=== PATIENT | male | born 1975 | race Caucasian/White ===

== ENCOUNTER 2017-10-29 17:13 | Emergency (ER) | payer OTHER ==
[2017-10-29] MEDS ORDERED: FENTANYL CITR 100 MCG/2 ML ONE (17:48)
[2017-10-29] MEDS ORDERED: DIAZEPAM 5 MG TABLET ONE (17:48)
--- NOTE | 2017-10-29 17:53 | EDPHYS ---
Physician Documentation [facility] Name: Bashir Montana Age: 42 yrs Sex: Male : 1975 Arrival Date: 10/29/2017 Time: 17:17 Bed 13 Private MD: ED Physician Matt Pina HPI: 10/29 18:14 This 42 yrs old Male presents to ER via Ambulatory with complaints of BONE snw SPURS. 18:14 The patient presents with pain, numbness. The complaints affect the lateral aspect of snw left calf, left hamstring, posterior aspect of left knee and left calf. Context: resulted from known bones spurs to lower back, the patient can fully bear weight, the patient is able to ambulate. Onset: The symptoms/episode began/occurred and became worse and became persistent. Associated signs and symptoms: Pertinent positives: calf tenderness, tingling, warmth, of the left leg. Severity of symptoms: At their worst the symptoms were moderate. The patient has experienced similar episodes in the past. The patient has been recently seen by a physician: the patient's primary care provider, Dr. Rodríguez. MRI scheduled for Monday. . Historical: - Allergies: 17:24 PENICILLINS; la1 - PMHx: 17:24 None; la1 - Immunization history:: Adult Immunizations up to date. - Social history:: Smoking status: Patient/guardian denies using tobacco. ROS: 18:12 Constitutional: Negative for fever, chills, and weight loss, Eyes: Negative for injury, snw pain, redness, and discharge, ENT: Negative for injury, pain, and discharge, Neck: Negative for injury, pain, and swelling, Cardiovascular: Negative for chest pain, palpitations, and edema, Respiratory: Negative for shortness of breath, cough, wheezing, and pleuritic chest pain, Abdomen/GI: Negative for abdominal pain, nausea, vomiting, diarrhea, and constipation, Back: Negative for injury and pain, : Negative for injury, bleeding, discharge, and swelling, MS/Extremity: Negative for injury and deformity, + pain and numbness to left posterior and lateral lower extremity Skin: Negative for injury, rash, and discoloration, Neuro: Negative for headache, weakness, numbness, tingling, and seizure. Exam: 18:12 Constitutional: This is a well developed, well nourished patient who is awake, alert, snw and in no acute distress. Head/Face: Normocephalic, atraumatic. Eyes: Pupils equal round and reactive to light, extra-ocular motions intact. Lids and lashes normal. Conjunctiva and sclera are non-icteric and not injected. Cornea within normal limits. Periorbital areas with no swelling, redness, or edema. ENT: Nares patent. No nasal discharge, no septal abnormalities noted. Tympanic membranes are normal and external auditory canals are clear. Oropharynx with no redness, swelling, or masses, exudates, or evidence of obstruction, uvula midline. Mucous membranes moist. Neck: Trachea midline, no thyromegaly or masses palpated, and no cervical lymphadenopathy. Supple, full range of motion without nuchal rigidity, or vertebral point tenderness. No Meningismus. Chest/axilla: Normal chest wall appearance and motion. Nontender with no deformity. No lesions are appreciated. Cardiovascular: Regular rate and rhythm with a normal S1 and S2. No gallops, murmurs, or rubs. Normal PMI, no JVD. No pulse deficits. Respiratory: Lungs have equal breath sounds bilaterally, clear to auscultation and percussion. No rales, rhonchi or wheezes noted. No increased work of breathing, no retractions or nasal flaring. Abdomen/GI: Soft, non-tender, with normal bowel sounds. No distension or tympany. No guarding or rebound. No evidence of tenderness throughout. Back: No spinal tenderness. No costovertebral tenderness. Full range of motion. Skin: Warm, dry with normal turgor. Normal color with no rashes, no lesions, and no evidence of cellulitis. Neuro: Awake and alert, GCS 15, oriented to person, place, time, and situation. Cranial nerves II-XII grossly intact. Motor strength 5/5 in all extremities. Sensory grossly intact. Cerebellar exam normal. Normal gait. Psych: Awake, alert, with orientation to person, place and time. Behavior, mood, and affect are within normal limits. 18:12 Musculoskeletal/extremity: Extremities: grossly normal except: ROM: no acute changes, Circulation is intact in all extremities. the lateral aspect of left calf numbness. Vital Signs: 17:24 BP 155 / 102; Pulse 106; Resp 19; Temp 97.1; Pulse Ox 100% on R/A; Weight 137.44 kg; la1 Height 6 ft. 2 in. (187.96 cm) (R); 18:00 BP 118 / 79; Pulse 81; Resp 18; Pulse Ox 97% on R/A; Pain 8/10; em 17:24 Body Mass Index 38.90 (137.44 kg, 187.96 cm) la1 MDM: 17:28 Patient medically screened. snw 18:13 Data reviewed: vital signs, nurses notes. Data interpreted: Pulse oximetry: on room air snw is 97 %. Interpretation: normal. Counseling: I had a detailed discussion with the patient and/or guardian regarding: the historical points, exam findings, and any diagnostic results supporting the discharge/admit diagnosis, the presence of at least one elevated blood pressure reading (>120/80) during this emergency department visit, the need for outpatient follow up, to return to the emergency department if symptoms worsen or persist or if there are any questions or concerns that arise at home. Special discussion: Based on the history and exam findings, there is no indication for further emergent testing or inpatient evaluation. I discussed with the patient/guardian the need to see the back specialist for further evaluation of the symptoms. I discussed with the patient/guardian the need to see the primary care provider for further evaluation of the symptoms. Administered Medications: 17:45 Not Given (Physician Discretion): Valium 2 mg PO once em 17:50 Drug: fentaNYL (PF) 50 mcg Route: IM; Site: right deltoid; em 18:10 Follow up: Response: No adverse reaction em 17:50 Drug: Valium 2.5 mg Route: PO; em 18:10 Follow up: Response: No adverse reaction em Disposition: 10/29/17 17:52 Discharged to Home. Impression: Radiculopathy, lumbosacral region. - Condition is Stable. - Discharge Instructions: Back Pain, Adult, Hypertension, Lumbosacral Radiculopathy, Back Exercises, Mgxp-on-Qqog. - Prescriptions for Tylenol- Codeine #3 300-30 mg Oral Tablet - take 1 tablet by ORAL route every 6 hours As needed; 6 tablet. - Medication Reconciliation Form, Thank You Letter, Antibiotic Education, Prescription Opioid Use form. - Follow up: Emergency Department; When: As needed; Reason: Worsening of condition. Follow up: Private Physician; When: Tomorrow; Reason: Recheck today's complaints, Continuance of care, Re-evaluation by your physician. Addendum: 11/07/2017 05:55 Co-signature as Attending Physician, Matt Pina MD I agree with the assessment and w a plan of care. Signatures: Sweetie Springer, STATION JAILER-C STATION JAILER-Csnw Jose R Sumner, AUTOMATION CONTROLS SPECIALIST AUTOMATION CONTROLS SPECIALIST em Warren Rolle RN RN la1 Matt Pina MD MD ny Corrections: (The following items were deleted from the chart) 10/29 18:14 17:52 10/29/2017 17:52 Discharged to Home. Impression: Radiculopathy, lumbosacral em region. Condition is Stable. Forms are Medication Reconciliation Form, Thank You Letter, Antibiotic Education, Prescription Opioid Use. Follow up: Emergency Department; When: As needed; Reason: Worsening of condition. Follow up: Private Physician; When: Tomorrow; Reason: Recheck today's complaints, Continuance of care, Re-evaluation by your physician. snw
--- NOTE | 2017-10-29 17:53 | ER ---
Nurse's Notes [facility] Name: Bashir Montana Age: 42 yrs Sex: Male : 1975 Arrival Date: 10/29/2017 Time: 17:17 Bed 13 Private MD: Diagnosis: Radiculopathy, lumbosacral region Presentation: 10/29 17:23 Presenting complaint: Patient states: I have chronic back pain and problems and they la1 are getting worse. Transition of care: patient was not received from another setting of care. Onset of symptoms was October 29, 2017. Initial Sepsis Screen: Does the patient meet any 2 criteria? No. Patient's initial sepsis screen is negative. Does the patient have a suspected source of infection? No. Patient's initial sepsis screen is negative. Care prior to arrival: None. 17:23 Method Of Arrival: Ambulatory la1 17:23 Acuity: SABA 3 la1 Historical: - Allergies: 17:24 PENICILLINS; la1 - PMHx: 17:24 None; la1 - Immunization history:: Adult Immunizations up to date. - Social history:: Smoking status: Patient/guardian denies using tobacco. Screenin:01 Abuse screen: Denies threats or abuse. Nutritional screening: No deficits noted. em Tuberculosis screening: No symptoms or risk factors identified. Fall Risk None identified. Assessment: 18:02 General: Appears in no apparent distress. uncomfortable, Behavior is calm, cooperative. em Pain: Complains of pain in left low back Pain currently is 8 out of 10 on a pain scale. Neuro: Level of Consciousness is awake, alert, obeys commands, Oriented to person, place, time, situation, Reports paresthesias in left leg. Cardiovascular: Capillary refill < 3 seconds Patient's skin is warm and dry. Respiratory: Airway is patent Respiratory effort is even, unlabored, Respiratory pattern is regular, symmetrical. GI: Abdomen is round. : No deficits noted. Derm: Skin is intact, Skin is pink, warm \T\ dry. Musculoskeletal: Range of motion: intact in all extremities. 18:20 Reassessment: Patient appears in no apparent distress at this time. I agree with the iw above assessment by Jose R Sumner LVN. Vital Signs: 17:24 BP 155 / 102; Pulse 106; Resp 19; Temp 97.1; Pulse Ox 100% on R/A; Weight 137.44 kg; la1 Height 6 ft. 2 in. (187.96 cm) (R); 18:00 BP 118 / 79; Pulse 81; Resp 18; Pulse Ox 97% on R/A; Pain 8/10; em 17:24 Body Mass Index 38.90 (137.44 kg, 187.96 cm) la1 ED Course: 17:17 Patient arrived in ED. sb2 17:24 Triage completed. la1 17:25 Arm band placed on left wrist. la1 17:27 Sweetie Springer FNP-C is [facility]. snw 17:27 Matt Pina MD is Attending Physician. snw 17:36 Jose R Sumner LVN is Primary Nurse. em 18:01 Patient has correct armband on for positive identification. Bed in low position. Call em light in reach. Adult w/ patient. 18:01 No provider procedures requiring assistance completed. Patient did not have IV access em during this emergency room visit. Administered Medications: 17:45 Not Given (Physician Discretion): Valium 2 mg PO once em 17:50 Drug: fentaNYL (PF) 50 mcg Route: IM; Site: right deltoid; em 18:10 Follow up: Response: No adverse reaction em 17:50 Drug: Valium 2.5 mg Route: PO; em 18:10 Follow up: Response: No adverse reaction em Outcome: 17:52 Discharge ordered by . snw 18:13 Discharged to home ambulatory. em 18:13 Condition: good 18:13 Discharge instructions given to patient, Instructed on discharge instructions, follow up and referral plans. medication usage, Demonstrated understanding of instructions, follow-up care, medications, Prescriptions given X 1. 18:14 Patient left the ED. em Signatures: Sweetie Springer FNP-C EXHIBIT DISPLAY REPRESENTATIVE-Csnw Jose R Sumner LVN [employer] SE[employer]ATION PLANT ENGINEER em Jackie Fish RN LANE iw Warren Rolle RN RN la1 Maia Cortes sb2
== END 2017-10-29 18:14 | disposition home or self-care (01) ==
LOC: ER 17:13
DX: M54.17 Radiculopathy, lumbosacral region (principal); Z88.0 Allergy status to penicillin
CPT/HCPCS: 96372; 99283; J3010

== ENCOUNTER → 2017-11-14 | Day surgery (SDC) | payer OTHER ==
--- NOTE | 2017-11-14 11:07 | RAD REPORT ---
EXAM DESCRIPTION: US - Guided FNA Non Breast - 11/14/2017 10:16 am CLINICAL HISTORY: Left thyroid nodule for fine needle aspiration COMPARISON: Ultrasound study September 2017 FINDINGS: Patient presents for ultrasound-guided fine-needle aspiration of a dominant 3.7 centimeter mixed solid and cystic nodule filling most of the left thyroid lobe. The ultrasound-guided fine-needle aspiration procedure, risks and alternatives were discussed with th e patient in detail. After answering all questions, both oral and written consent were obtained. Zakia ent had no contraindicated allergy or medication history. Time out procedure was performed. Preliminary imaging again identified a large mixed solid and cystic nodule. Anterior left neck was pr epped and draped in the usual sterile fashion. Skin and deeper tissues were anesthetized with 1% lido meghna. Under direct sonographic visualization a 25 gauge needle was advanced into the nodule. Needle was directed into the solid-appearing components of this nodule. Multiple to and fro excursions were made. Aspiration procedure was repeated with 3 additional 25 gauge needles chronic each directed to t he solid components of the nodule. The fifth aspiration was performed. A 25 gauge needle was used to access the cystic portions of the nodule with approximately 2 mL of fluid aspirated for cytology. Patient tolerated the procedure well without complications. There was no evidence of hemorrhage withi n the nodule or in the adjacent soft tissues. Postprocedure care and precaution instructions were giv en to the patient. IMPRESSION: Ultrasound-guided fine-needle aspiration was performed as detailed. All obtained materia l was given to cytology for assessment.
== END ==
LOC: FNA 09:25
PROVIDERS: ATTEND Otolaryngology
PROC: 0GJK3ZZ Inspection of Thyroid Gland, Percutaneous Approach (ICD-10-PCS; principal; 2017-11-14)
PROC: BG44ZZZ Ultrasonography of Thyroid Gland (ICD-10-PCS; 2017-11-14)
DX: E04.2 Nontoxic multinodular goiter (principal)
CPT/HCPCS: 76942; 88108; 88162; 88305

== ENCOUNTER 2024-10-17 11:32 | Emergency (ER) | payer OTHER ==
--- OUTSIDE RECORDS SUMMARY | 2024-10-17 11:39 | XMS REPORT | Continuity of Care Document ---
Author Name Unknown Address [address] [place] [address] [facility] Address [address] [place] [address] Care Team Providers Care Furnace Attendant Name Role Phone Buddy Middleton MD Primary Care Physician LESLIE ALVAREZ Attending Clinician LESLIE Uribe Attending Clinician Stefania edge , [facility] Bed Attending Clinician Leslie Fitch MD Attending Clinician [phone] Doctor Unassigned, [place] Attending Clinician [facility] Attending Clinician Stefania edge Payers Payer Name Policy Type Policy Number Effective Date Expirati on Date Source COMMERCIAL NON-CONTRACT GENERIC [id number] 2021 00:00:00 Allergies, Adverse Reactions, Alerts Allergy Name Allergy Type Status Severity Reaction(s) Onset Date Inactive Date Treating Clinician Comments Source NO KNOWN ALLERGIE S Drug Class Active [facility] Social History Social Habit Start Date Stop Date Quantity Comments Source Sex Assigned At 1975 00:00:00 1975 00:00:00 [facility] Smoking Status Start Date Stop Date Source Tobacco smoking consumption unknown [facility] Procedures Procedure Date / Time Performed Performing Clinicia n Source SLEEP STUDY DATA REPORT 2022-04-21 05:01:00 Doctor Unassigned, [place] [facility] CONSENT/REFUSAL FOR DIAGNOSIS AND TREATMENT 2022-03-24 15:13:30 Doctor Unassigned, [place] [facility] Encounters Start Date/Time End Date/Time Encounter Type Admission Type Attending [facility] Facility Care Department Encounter ID Source 2022-07-16 20:00:00 2022-07-16 20:00:00 Outpatient R ATANASOSMAN, STRAHIL ATANASOV, STRAHIL [facility] [id number] [facility] 2022-04-21 20:00:00 2022-04-21 22:30:00 Lead Front Desk Agent Visit 1, [facility] Lab Bed J Luis Strahil T [facility] [id number] [facility] 2022-04-21 20:00:00 2022-04-21 20:00:00 Outpatient R ATANASOV, STRAHIL ATANASOV, STRAHIL [facility] [id number] [facility] 2022-04-21 00:00:00 2022-04-21 00:00:00 Orders Only Doctor Unassigned, [place] [facility] [id number] [facility] 2022-04-14 10:00:00 2022-04-14 10:00:00 Outpatient R ATANASOV, STRAHIL ATANASOV, STRAHIL [facility] [id number] [facility] 2022-03-24 10:30:00 2022-03-24 10:45:00 Lead Front Desk Agent Visit Tech, [facility] Lab Atanasosman Strahil T [facility] [id number] [facility] 2022-03-24 10:30:00 2022-03-24 10:30:00 Outpatient R ATANASOV, STRAHIL ATANASOV, STRAHIL [facility] [id number] [facility] 2022-03-24 00:00:00 2022-03-24 00:00:00 Orders Only Doctor Unassigned, [place] [facility] [id number] [facility]
[2024-10-17] MEDS ORDERED: KETOROLAC 30 MG/ML INJ ONE (13:28)
[2024-10-17] MEDS ORDERED: dexAMETHasone 10 MG/ML VIAL ONE (13:28)
--- NOTE | 2024-10-17 13:34 | RAD REPORT ---
EXAMINATION: CT LUMBAR SPINE WITHOUT CONTRAST CLINICAL INDICATION: Male, 49 years old. RADICULOPATHY TECHNIQUE: Axial CT images were obtained through the lumbar spine in soft tissue and bone windows wit hout intravenous contrast. Coronal and Sagittal reformatted images were created from the data set. One or more of the following dose reduction techniques were used: Automated exposure control, adjustm ent of the mA and/ or kV according to patient size, and/or iterative reconstruction. Unless otherwise specified, incidental findings do not require dedicated imaging follow-up. COMPARISON: No prior exam. FINDINGS: For purposes of this dictation, it is assumed that there are 5 non rib-bearing lumbar type vertebrae, and the most caudal fully segmented lumbar vertebra is labeled L5. ALIGNMENT: The lumbar spine demonstrates normal alignment without scoliosis or spondylolisthesis. BONES: No significant soft tissue abnormalities. No aggressive osseous lesions. DISCS: Diffuse disc thinning is present. LEVELS: Mild to moderate central canal narrowing is present lower lumbar levels with central canal, l eft lateral recess and exit foraminal narrowing present at multiple levels. SOFT TISSUE: No soft tissue abnormalities. IMPRESSION: No acute lumbar spine abnormalities. Moderate lower lumbar degenerative spondylosis is seen with central, left lateral recess and exit for aminal narrowing present at multiple levels. Nonemergent MRI follow-up suggested.
--- NOTE | 2024-10-17 13:51 | ER ---
Nurse's Notes [facility] Name: Bashir Montana Age: 49 yrs Sex: Male : 1975 Arrival Date: 10/17/2024 Time: 11:32 Bed 10 Private MD: Diagnosis: Radiculopathy, lumbar region;Other intervertebral disc degeneration, lumbar region Presentation: 10/17 12:11 Chief complaint: Patient states: Low back pain radiating to left glute since Monday jl7 after lifting a battery. Coronavirus screen: At this time, the client does not indicate any symptoms associated with coronavirus-19. Ebola Screen: No symptoms or risks identified at this time. Initial Sepsis Screen: Does the patient meet any 2 criteria? No. Patient's initial sepsis screen is negative. Does the patient have a suspected source of infection? No. Patient's initial sepsis screen is negative. Risk Assessment: Do you want to hurt yourself or someone else? Patient reports no desire to harm self or others. Onset of symptoms was October 14, 2024. 12:11 Method Of Arrival: Ambulatory jl7 12:11 Acuity: SABA 4 jl7 Triage Assessment: 12:13 General: Appears in no apparent distress. uncomfortable, Behavior is calm, cooperative, jl7 appropriate for age. Pain: Complains of pain in low back area Pain currently is 8 out of 10 on a pain scale. Historical: - Allergies: 12:13 PENICILLINS; jl7 - Home Meds: 12:13 Mounjaro subcutaneous [Active]; jl7 - PMHx: 12:13 Diabetes mellitus; jl7 - Immunization history:: Adult Immunizations unknown. - Infectious Disease History:: Denies. - Social history:: Smoking status: Patient denies any tobacco usage or history of. - Family history:: not pertinent. - Hospitalizations: : No recent hospitalization is reported. Screenin:17 Abuse screen: Denies threats or abuse. Denies injuries from another. Nutritional ss screening: No deficits noted. Tuberculosis screening: Never had TB. Assessment: 13:17 General: Appears in no apparent distress. Behavior is calm, cooperative. Pain: ss Complains of pain in low back area, L buttocks/ hip Pain currently is 8 out of 10 on a pain scale. Is continuous. Neuro: Level of Consciousness is awake, alert, obeys commands, Oriented to person, place, time, situation. Respiratory: Airway is patent Respiratory effort is even, unlabored, Respiratory pattern is regular, symmetrical. Derm: Skin is intact, is healthy with good turgor, Skin is pink, warm \T\ dry. normal. Vital Signs: 12:11 BP 137 / 98; Pulse 79; Resp 15; Temp 97; Pulse Ox 97% ; Weight 142.88 kg; Height 6 ft. jl7 2 in. ; Pain 8/10; 12:11 Body Mass Index 40.44 (142.88 kg, 187.96 cm) jl7 12:11 Pain Scale: Adult jl7 ED Course: 11:40 Patient arrived in ED. cj3 11:40 Glen Smith MD is Attending Physician. rn 12:13 Triage completed. jl7 12:13 Arm band placed on right wrist. jl7 12:27 Inserted saline lock: 20 gauge in left antecubital area, using aseptic technique. bc6 Flushed with 10 mL NS. 13:02 CT Lumbar Spine Wo Con In Process Unspecified. EDMS 13:17 Patient has correct armband on for positive identification. ss 13:37 Tasha Mesa, LANE is Primary Nurse. ss 14:40 No provider procedures requiring assistance completed. IV discontinued, intact, ss bleeding controlled, No redness/swelling at site. Pressure dressing applied. Administered Medications: 13:35 Drug: Decadron - Dexamethasone IVP 10 mg IVP once Route: IVP; Site: left antecubital; ss 14:41 Follow up: Response: No adverse reaction ss 13:38 Drug: Ketorolac IVP 15 mg IVP once Route: IVP; Site: left antecubital; ss 14:41 Follow up: Response: No adverse reaction ss 13:38 Not Given (Pt does not have a ride homee): hydrocodone-acetaminophen5 mg-325 mg 1 tabs ss PO once 13:38 Not Given (Pt took dose this morningg): [id number] mg PO once ss Medication: 13:17 VIS not applicable for this client. ss Outcome: 13:50 Discharge ordered by . rn 14:40 Discharged to home ambulatory, ss 14:40 Condition: good 14:40 Discharge instructions given to patient, family, Instructed on discharge instructions, follow up and referral plans. medication usage, Demonstrated understanding of instructions, follow-up care, medications, Prescriptions given X 2, 14:42 Patient left the ED. ss Signatures: Dispatcher [employer] EDMS Glen Smith MD MD rn Blanchard, Shelby, RN RN ss Leal, Jahala, RN RN jl7 Payton [place] 6 Sunitha Yepez 3
--- NOTE | 2024-10-17 13:51 | EDPHYS ---
Physician Documentation [facility] Name: Bashir Montana Age: 49 yrs Sex: Male : 1975 Arrival Date: 10/17/2024 Time: 11:32 Bed 10 Private MD: ED Physician Glen Smith HPI: 10/17 13:30 This 49 yrs old Male presents to ER via Ambulatory with complaints of Lower Back Pain. rn 13:30 The patient presents with pain that is acute. The symptoms are located in the low back, rn L1 and L2. Onset: The symptoms/episode began/occurred 3 day(s) ago. The pain radiates to the buttocks. Modifying factors: The patient symptoms are alleviated by nothing, the patient symptoms are aggravated by lifting, movement. Severity of symptoms: At their worst the symptoms were moderate, in the emergency department the symptoms are unchanged. Patient reports previous back issues and had surgery, had disc problem between L4 and L5. 3 days ago was lifting heavy batteries and felt a pop, and reports lumbar pain that radiates to the left buttocks. No bowel or bladder issues. No weakness.. Historical: - Allergies: 12:13 PENICILLINS; jl7 - Home Meds: 12:13 Mounjaro subcutaneous [Active]; jl7 - PMHx: 12:13 Diabetes mellitus; jl7 - Immunization history:: Adult Immunizations unknown. - Infectious Disease History:: Denies. - Social history:: Smoking status: Patient denies any tobacco usage or history of. - Family history:: not pertinent. - Hospitalizations: : No recent hospitalization is reported. ROS: 13:30 Constitutional: Negative for fever, chills, and weight loss, Cardiovascular: Negative rn for chest pain, palpitations, and edema, Respiratory: Negative for shortness of breath, cough, wheezing, and pleuritic chest pain, Abdomen/GI: Negative for abdominal pain, nausea, vomiting, diarrhea, and constipation, Back: Positive for lower back pain MS/Extremity: Negative for injury and deformity, Neuro: Negative for headache, weakness, numbness, tingling, and seizure, Exam: 13:30 Constitutional: This is a well developed, well nourished patient who is awake, alert, rn and in no acute distress. Ambulatory to room without assistance or difficulty Back: No midline spinal tenderness. Neuro: Ambulatory with normal strength and sensation Vital Signs: 12:11 BP 137 / 98; Pulse 79; Resp 15; Temp 97; Pulse Ox 97% ; Weight 142.88 kg; Height 6 ft. jl7 2 in. ; Pain 8/10; 12:11 Body Mass Index 40.44 (142.88 kg, 187.96 cm) 7 12:11 Pain Scale: Adult jl7 MDM: 11:40 Medical Screening Exam initiated rn 13:49 Differential diagnosis: chronic back pain, Ruptured disc, lumbar radiculopathy, lumbar rn fracture. Data reviewed: vital signs, nurses notes, radiologic studies, CT scan, and as a result, I will discharge patient. Care significantly affected by the following chronic conditions: Chronic back disease, disc problem. Counseling: I had a detailed discussion with the patient and/or guardian regarding the historical points, exam findings, and any diagnostic results supporting the discharge/admit diagnosis, radiology results, the need for outpatient follow up, to return to the emergency department if symptoms worsen or persist or if there are any questions or concerns that arise at home. Response to treatment: the patient's symptoms have mildly improved after treatment, and as a result, I will discharge patient. Special discussion: I discussed with the patient/guardian in detail that at this point there is no indication for admission to the hospital. It is understood, however, that if the symptoms persist or worsen the patient needs to return immediately for re-evaluation. Based on the history and exam findings, there is no indication for further emergent testing or inpatient evaluation. I discussed with the patient/guardian the need to see the back specialist for further evaluation of the symptoms. ED course: No acute findings on CT lumbar spine. Shows multilevel disc disease and foraminal stenosis. No indication for transfer or emergent surgery at this time. Will discharge home with as needed medication and will follow-up with back specialist. Patient has already had back surgery in the past.. 10/17 12:20 Order name: CT Lumbar Spine Wo Con; Complete Time: 13:36 rn 10/17 12:20 Order name: IV Start; Complete Time: 12:26 rn Administered Medications: 13:35 Drug: Decadron - Dexamethasone IVP 10 mg IVP once Route: IVP; Site: left antecubital; ss 14:41 Follow up: Response: No adverse reaction ss 13:38 Drug: Ketorolac IVP 15 mg IVP once Route: IVP; Site: left antecubital; ss 14:41 Follow up: Response: No adverse reaction ss 13:38 Not Given (Pt does not have a ride homee): hydrocodone-acetaminophen5 mg-325 mg 1 tabs ss PO once 13:38 Not Given (Pt took dose this morningg): [id number] mg PO once ss Disposition Summary: 10/17/24 13:50 Discharge Ordered Notes: Location: Home rn Problem: an ongoing problem rn Symptoms: have improved rn Condition: Stable rn Diagnosis - Radiculopathy, lumbar region rn - Other intervertebral disc degeneration, lumbar region rn Followup: rn - With: Private Physician - When: As needed - Reason: Recheck today's complaints, Re-evaluation by your physician Discharge Instructions: - Discharge Summary Sheet rn - Lumbosacral Radiculopathy rn - Degenerative Disk Disease rn - Back Exercises rn Forms: - Medication Reconciliation Form rn - Antibiotic regulatory attorney - Prescription Opioid Use rn - Patient Portal Instructions rn - Leadership Thank You Letter rn Prescriptions: - gabapentin 300 mg Oral capsule - take 1 capsule ORAL route 2 times per day As needed; 14 capsule; Refills: 0, rn Product Selection Permitted - Cyclobenzaprine 10 mg Oral tablet - take 1 tablet ORAL route every 8 to 12 hours As needed; 14 tablet; Refills: 0, rn Product Selection Permitted - Medrol (Ian) 4 mg Oral Tablets, Dose Pack - take 1 tablet ORAL route as directed - follow package instructions; 1 packet; rn Refills: 0, Product Selection Permitted Signatures: Dispatcher [employer] EDGlen Suarez MD MD rn Blanchard, Shelby, RN RN ss Leal, Jahala RN RN jl7 Corrections: (The following items were deleted from the chart) 13:32 13:30 Constitutional: This is a well developed, well nourished patient who is awake, rn alert, and in no acute distress. Back: No midline spinal tenderness. Neuro: Ambulatory with normal strength and sensation rn
[2024-10-17 14:49] VITALS: BP 137/98; TEMP 97; O2SAT 97
== END 2024-10-17 14:42 | disposition home or self-care (01) ==
LOC: ER 11:32
DX: M54.16 Radiculopathy, lumbar region (principal); M51.369 Other intervertebral disc degeneration, lumbar region without mention of lumbar back pain or lower extremity pain
CPT/HCPCS: 72131; 96375; 96374; 99284; J1100